=== PATIENT | female | born 1975 | race Caucasian/White ===

== ENCOUNTER 2020-06-09 15:19 | Emergency (ER) | payer BC, SELFPAY ==
--- NOTE | ~2020-06-09 | XR_ITS ---
EXAMINATION: XR finger 2nd LT min 2V DATE: 06/09/2020 16:27 INDICATION: Post injury to the left second digit TECHNIQUE: Dorsal palmar, lateral and 2 oblique views of the left second digit were obtained COMPARISON: None FINDINGS: Is approximately 2 mm distal distraction of a transverse fracture across the distal tuft of the left second distal phalanx. Abnormal contour to the soft tissues at the dorsal aspect of the distal phalan x suggesting loss of the nail or nail bed injury which could render this a: Interval open/compound fr acture. No other fractures identified. Joint spaces are normal. IMPRESSION: 1. 2 mm distraction of a transverse fracture across the tip of the tuft of the left second distal pha lanx with suggestion of associated nailbed injury with synovitis: Open/compound fracture at increased risk of infection. Reviewed, dictated and finalized at location A. IMPRESSION: 1. 2 mm distraction of a transverse fracture across the tip of the tuft of the left second distal phalanx with suggestion of associated nailbed injury with sy novitis: Open/compound fracture at increased risk of infection.
[2020-06-09 15:29] VITALS: BP 170/85; PULSE 98; RESP 18; TEMP 37.3; O2SAT 98
--- NOTE | 2020-06-09 15:40 | WC.ED.TRAUMA ---
HPI - Trauma General Chief Complaint: Extremity Injury, Upper Stated Complaint: finger injury Time Seen by Provider: 06/09/20 15:31 Source: patient Mode of arrival: ambulatory Limitations: no limitations History of Present Illness HPI narrative: Patient is a 44-year-old female who presents after crush injury to the left index finger that occurred last night lacerating the distal third of the nailbed patient did not receive or seek care until today patient is unsure as to tetanus status patient notes moderate aching pain worse with activity and movement Related Data Home Medications Medication Instructions Recorded Confirmed hydrochlorothiazide 06/09/20 metoprolol succinate PO 06/09/20 06/09/20 Allergies Allergy/AdvReac Type Severity Reaction Status Date / Time No Known Allergies Allergy Verified 06/09/20 15:33 Review of Systems Review of Systems: All systems reviewed & are unremarkable except as noted in HPI and below PMFSH Past Medical History Medical History (Updated 06/09/20 @ 16:51 by Washington Cazares PA-C) Obesity Social History Social History Gender identity (if verbalized by the patient): Female Exam Narrative: Exam Narrative: GENERAL: Well-appearing, well-nourished, and in no acute distress. HEAD: Normocephalic, atraumatic. EYES: PERRLA and EOMI. ENT: Nares clear, no rhinorrhea or epistaxis. Mucous membranes moist. EXTREMITIES: Normal range of motion. No edema. SKIN: Warm, dry, no rash. Laceration of the distal third of the nailbed NEURO: No focal deficits. Alert and oriented x3. Neurovascularly intact PSYCH: Normal mood and affect. Course Course Emergency Course: Patient's laceration was repaired in the emergency department felt appropriate for outpatient reevaluation tetanus updated and given antibiotic given the open fracture Vital Signs Vital signs: Vital Signs Temperature 99.2 F 06/09/20 15:29 Pulse Rate 98 06/09/20 15:29 Respiratory Rate 18 06/09/20 15:29 Blood Pressure 170/85 H 06/09/20 15:29 Pulse Oximetry 98 06/09/20 15:29 Temperature 99.2 F 06/09/20 15:29 Pulse Rate 98 06/09/20 15:29 Respiratory Rate 18 06/09/20 15:29 Blood Pressure 170/85 H 06/09/20 15:29 Pulse Oximetry 98 06/09/20 15:29 Procedures Laceration Laceration 1: Date: 06/09/20 Time: 16:48 Site: upper extremity (Left index finger) Side (If applicable): left Size (cm): 1 Description: linear Depth: simple, single layer Local Anesthetic: lidocaine 1% Pre-repair: wound explored, irrigated and irrigated extensively ====== Skin Level ====== Skin layer closed with: nylon Size (cm): 4-0 Number of sutures: 4 Technique: simple, interrupted ====== Subcutaneous Layer ====== ====== Muscle Layer ====== ====== Tendon Layer ====== Dressing: Patient's wound was prepped with Technicare scrub after digital block with 1% lidocaine distal portion of the nail was removed nailbed was repaired using 4-0 nylon sutures to approximate the wound antibiotic ointment 4 x 4 and Coban placed post procedure. Neurovascularly intact pre-and post procedure MDM - Trauma MDM Narrative Medical decision making narrative: Patients injury or pain is consistent with musculoskeletal etiology. No signs of neurological or vascular compromise on exam. Compartments and tisues are soft without signs of compartment syndrome. Patient will be referred to plastic surgery placed on antibiotics Discharge Plan Discharge Clinical Impression: Open fracture of finger, Nailbed laceration, finger Patient Disposition: Home, Self-Care Condition: Stable Instructions: Antibiotic Form, Laceration (DC), Finger Fracture (ED) Additional Instructions: Follow-up with hand surgeon first thing Thursday to set up for reevaluation and discussion of removal of
[2020-06-09] MEDS: TETANUS,DIPHTHERIA,AC PERTUSSIS ADULT (0.5 ML) BOOSTRIX IM (15:43)
[2020-06-09] MEDS: ceFAZolin SODIUM 1 GM VIAL IM (17:01)
== END 2020-06-09 17:15 | disposition home or self-care (01) ==
PROVIDERS: Emergency Provider Emergency Medicine; PCP Physician Assistant
DX: S62.631B Displaced fracture of distal phalanx of left index finger, initial encounter for open fracture (principal); E66.9 Obesity, unspecified; Z68.39 Body mass index [BMI] 39.0-39.9, adult; Z23 Encounter for immunization; W23.0XXA Caught, crushed, jammed, or pinched between moving objects, initial encounter
CPT/HCPCS: 12001; 73140; 90471; 90715; 99283; J0690

== ENCOUNTER 2025-04-28 10:21 | Outpatient (CLI) | payer BC, SELFPAY ==
--- NOTE | ~2025-04-28 | US_ITS ---
EXAMINATION: US retroperitoneal duplex ltd DATE: 04/28/2025 13:27 CDT INDICATION: Uncontrolled hypertension TECHNIQUE: Sonographic imaging of the kidneys was performed with a 3.5 MHz transducer. Retroperitoneal duplex sonogram of the renal arteries also obtained. FINDINGS: No focal flow abnormalities are seen in the renal arteries on color Doppler. The peak systolic velocity ranges of the right and left renal arteries and aorta are 99 cm per second, 180 cm per second, and 68 cm per second, respectively. The velocities and renal to aortic ratios are are elevated on the left, consistent with renal artery stenosis. Left renal artery ratio is elevated measuring 2.7. IMPRESSION: 1. Abnormal velocities in the left renal artery, compatible with renal artery stenosis. Reviewed, dictated and finalized at location O.
== END 2025-04-28 10:22 | disposition home or self-care (01) ==
LOC: MICIMG 10:22
PROVIDERS: PCP Physician Assistant; Visit Provider Physician Assistant
DX: I10 Essential (primary) hypertension (principal)
CPT/HCPCS: 93976

== ENCOUNTER 2025-06-29 08:56 | Outpatient (CLI) | payer BC, SELFPAY ==
--- NOTE | ~2025-06-29 | MR_ITS ---
EXAMINATION: MRA abdomen wo/w con DATE: 06/29/2025 10:55 INDICATION: Left renal artery stenosis TECHNIQUE: Magnetic resonance angiography (MRA) of the abdomen was performed without and with 20 mL Multihance intravenous contrast. Sequences included axial and coronal 2-D FIESTA, 3-D phase contrast at the level renal arteries and pre contrast and two sequential coronal postcontrast FSPGR from which rotating maximum intensity projection reconstructions were performed. COMPARISON: Ultrasound dated 04/28/2025 FINDINGS: Abdominal aorta, celiac axis, superior and inferior mesenteric arteries, bilateral renal arteries and bilateral common and visualized portions of the bilateral internal and external iliac arteries are all normal in caliber, widely patent with no stenosis or dissection. Incidentally noted is a tiny accessory left renal artery supplying portions of the lower pole. The bilateral kidneys and adrenal glands and visualized portions of the liver and pancreas are normal. Mild splenomegaly measuring 14.6 cm in maximal length. Gallbladder is nonvisualized and likely surgically absent. Visualized portions of the bowels are unremarkable. No pathologically enlarged abdominal lymphadenopathy. . IMPRESSION: 1. Tiny patent accessory left renal artery supplying the lower pole. Otherwise normal MR angiogram of the abdominal aorta and its branch arteries with no renal artery stenosis. Reviewed, dictated and finalized at location A. IMPRESSION: 1. Tiny patent accessory left renal artery supplying the lower pole. Otherwise normal MR angiogram of the abdominal aorta and its branch arteries with no gomez l artery stenosis.
--- OUTSIDE RECORDS SUMMARY | 2025-06-29 09:13 | XMS_ITS | Data Portability ---
Author Organization [facility]THEW JIMSlade Mejia Address [address] [place] [address] Care Team Providers Care Restoration Ecologist Name Role Phone YAW PAYAN Primary Care Provider Unavailabl e Assessment No assessment recorded. Plan of Treatment Reminders Order Date Submit Date Provider Last Modified By Organization Details Last Modified Time Details Appointments ANY 15 2024 11:30A M ROBBIN Logan Not available Not available Not available Lab microalbu min, urine 2024 025 [facility], [address], [place], [address], 06/18/2025 09:07:32 HbA1c (hemoglob in A1c), blood 2024 025 [facility], [address], [place], [address], 06/18/2025 09:07:33 CMP, serum or plasma 2024 025 [facility], [address], [place], [address], 06/18/2025 09:07:33 CBC w/ auto diff 2024 025 [facility], [address], [place], [address], 06/18/2025 09:07:34 lipid panel, serum 2024 025 [facility], [address], [place], [address], 10/26/2024 11:07:56 CMP, serum or plasma 2024 025 [facility], [address], [place], [address], 10/26/2024 11:07:58 CBC w/ auto diff 2024 025 [facility], [address], [place], [address], 10/26/2024 11:08:02 insulin, serum 2024 025 [facility], [address], [place], [address], 10/26/2024 11:08:01 TSH + free T4, serum 2024 025 [facility], [address], [place], [address], 10/26/2024 11:07:57 HbA1c (hemoglob in A1c), blood 2024 025 [facility], [address], [place], [address], 10/26/2024 11:08:00 Referral None recorded. Procedures colonosco py screening (PROC) 2024 025 Laxmi Moya MD, [address], [address], [place], [address], 06/16/2025 14:49:10 Surgeries None recorded. Imaging US, duplex, renal artery 2024 025 [facility] (Imaging), [address], [place], [address], 05/31/2025 11:23:05 MAMMO, screening , digital, bilateral 2024 025 [facility] (Imaging), [address], [place], [address], 06/05/2025 15:24:41 Medication Orders Ozempic 0.25 mg or 0.5 mg (2 mg/3 mL) subcutane ous pen injector [address] [id number], [address], [place], [id number], 03/03/2025 13:26:54 OneTouch Verio test strips 2024 025 [facility] #[id number], [address], [place], [place], [id number], 11/02/2024 16:31:03 metoprolo l succinate ER 50 mg tablet,ex tended release 24 hr 2024 025 [facility] #[id number], [address], [place], [place], [id number], 03/21/2025 16:18:59 valsartan 160 mg tablet 2024 025 [facility] #[id number], [address], [place], [id number], 02/20/2025 16:20:33 Patient TargetsNo targets recorded. Patient Instructions Encounter Date Encounter Id Patient Instructions Last Modified By Organization Details Last Modified Time 09/27/2024 [id number] A healthy lifestyle: care instructions Not available 09/27/2024 16:12:16 11/02/2024 [id number] A healthy lifestyle: care instructions Not available 11/02/2024 16:11:54 02/01/2025 [id number] A healthy lifestyle: care instructions Not available 02/01/2025 16:42:52 03/08/2025 [id number] A healthy lifestyle: care instructions Not available 03/08/2025 16:50:57 Reason for Referral None Reported. Results Created Date Observation Date Name Description Value Unit Range Abnormal Flag Note LastModifiedBy Organization Detail LastModifiedTime 10/25/1910/26/2024 LIPID PANEL W/ CHOL/ HDL RATIO cholesterol, total 157 mg/dL 100-19 9 Not Available [facility] [address] [place], [address], 10/26/2024 11:07:56 10/25/19 25 10/26/2024 LIPID PANEL W/ CHOL/ HDL RATIO triglyceride s 180 mg/dL 0-149 above high normal Not Available [facility] [address] [place], [address], 10/26/2024 11:07:56 10/25/19 25 10/26/2024 LIPID PANEL W/ CHOL/ HDL RATIO HDL cholesterol 37 mg/dL >39 below low normal Not Available [facility] [address] [place], [address], 10/26/2024 11:07:56 10/25/19 25 10/26/2024 LIPID PANEL W/ CHOL/ HDL RATIO VLDL cholesterol dominick 31 mg/dL 5-40 Not Available [facility] [address] [place], [address], 10/26/2024 11:07:56 10/25/19 25 10/26/2024 LIPID PANEL W/ CHOL/ HDL RATIO LDL chol calc ([facility]) 89 mg/dL 0-99 Not Available [facility] [address] [place], [address], 10/26/2024 11:07:56 10/25/19 25 10/26/2024 LIPID PANEL W/ CHOL/ HDL RATIO T. chol/HDL ratio 4.2 ratio 0.0-4. 4 T. Chol/ HDL Ratio Men Women 1/2 Avg.R isk 3.4 3.3 Avg.R isk 5.0 4.4 2X Avg.R isk 9.6 7.1 3X Avg.R isk 23.4 11.0 Not Available [facility] [address] [place], [address], 10/26/2024 11:07:56 10/25/19 25 10/26/2024 TSH+F REE T4 TSH 0.875 uIU/m L 0.450- 4.500 Not Available [facility] [address] [place], [address], 10/26/2024 11:07:57 10/25/19 25 10/26/2024 TSH+F REE T4 T4,free(dire ct) 1.16 NG/dL 0.82-1 .77 Not Available [facility] [address] [place], [address], 10/26/2024 11:07:57 10/25/19 25 10/26/2024 COMP. METAB OLIC PANEL (14) glucose 153 mg/dL 70-99 above high normal Not Available [facility] [address] [place], [address], 10/26/2024 11:07:58 10/25/19 25 10/26/2024 COMP. METAB OLIC PANEL (14) BUN 13 mg/dL 6-24 Not Available [facility] [address] [place], [address], 10/26/2024 11:07:58 10/25/19 25 10/26/2024 COMP. METAB OLIC PANEL (14) creatinine 0.71 mg/dL 0.57-1 .00 Not Available [facility] [address] [place], [address], 10/26/2024 11:07:58 10/25/19 25 10/26/2024 COMP. METAB OLIC PANEL (14) eGFR 104 mL/mi n/1.7 3 >59 Not Available [facility] [address] [place], [address], 10/26/2024 11:07:58 10/25/19 25 10/26/2024 COMP. METAB OLIC PANEL (14) BUN/creatini ne ratio 18 9-23 Not Available [facility] [address] [place], [address], 10/26/2024 11:07:58 10/25/19 25 10/26/2024 COMP. METAB OLIC PANEL (14) sodium 144 mmol/ L 134-14 4 Not Available [facility] [address] [facility], [place], [address], 10/26/2024 11:07:58 10/25/19 25 10/26/2024 COMP. METAB OLIC PANEL (14) potassium 3.5 mmol/ L 3.5-5. 2 Not Available [facility] [address] [place], [address], 10/26/2024 11:07:58 10/25/19 25 10/26/2024 COMP. METAB OLIC PANEL (14) chloride 104 mmol/ L 96-106 Not Available [facility] [address] [place], [address], 10/26/2024 11:07:58 10/25/19 25 10/26/2024 COMP. METAB OLIC PANEL (14) carbon dioxide, total 21 mmol/ L 20-29 Not Available [facility] [address] [place], [address], 10/26/2024 11:07:58 10/25/19 25 10/26/2024 COMP. METAB OLIC PANEL (14) calcium 9.8 mg/dL 8.7-10 .2 Not Available [facility] [address] [place], [address], 10/26/2024 11:07:58 10/25/19 25 10/26/2024 COMP. METAB OLIC PANEL (14) protein, total 7.1 g/dL 6.0-8. 5 Not Available [facility] [address] [place], [address], 10/26/2024 11:07:58 10/25/19 25 10/26/2024 COMP. METAB OLIC PANEL (14) albumin 4.7 g/dL 3.9-4. 9 Not Available [facility] [address] [place], [address], 10/26/2024 11:07:58 10/25/19 25 10/26/2024 COMP. METAB OLIC PANEL (14) globulin, total 2.4 g/dL 1.5-4. 5 Not Available [facility] [address] [place], [address], 10/26/2024 11:07:58 10/25/19 25 10/26/2024 COMP. METAB OLIC PANEL (14) bilirubin, total 1.4 mg/dL 0.0-1. 2 above high normal Not Available [facility] [address] [place], [address], 10/26/2024 11:07:58 10/25/19 25 10/26/2024 COMP. METAB OLIC PANEL (14) alkaline phosphatase 84 IU/L 44-121 Not Available [facility] [address] [place], [address], 10/26/2024 11:07:58 10/25/19 25 10/26/2024 COMP. METAB OLIC PANEL (14) AST (SGOT) 25 IU/L 0-40 Not Available [facility] [address] [facility], [place], [address], 10/26/2024 11:07:58 10/25/19 25 10/26/2024 COMP. METAB OLIC PANEL (14) ALT (SGPT) 34 IU/L 0-32 above high normal Not Available [facility] [address] [place], [address], 10/26/2024 11:07:58 10/25/19 25 10/26/2024 HEMOG LOBIN A1C hemoglobin A1C 6.7 % 4.8-5. 6 above high normal Predi abete s: 5.7 - 6.4 Diabe iglesia: >6.4 Glyce you contr ol for adult s with diabe iglesia: <7.0 Not Available [facility] [address] [place], [address], 10/26/2024 11:07:59 10/25/19 25 10/26/2024 INSUL IN insulin 31.1 uIU/m L 2.6-24 .9 above high normal Not Available [facility] [address] [place], [address], 10/26/2024 11:08:01 10/25/19 25 10/26/2024 CBC WITH DIFFE RENTI AL/PL ATELE T WBC 7.5 x10e3 /uL 3.4-10 .8 Not Available [facility] [address] [place], [address], 10/26/2024 11:08:02 10/25/19 25 10/26/2024 CBC WITH DIFFE RENTI AL/PL ATELE T RBC 4.61 x10e6 /uL 3.77-5 .28 Not Available [facility] [address] [place], [address], 10/26/2024 11:08:02 10/25/19 25 10/26/2024 CBC WITH DIFFE RENTI AL/PL ATELE T hemoglobin 14.2 g/dL 11.1-1 5.9 Not Available [facility] [address] [place], [address], 10/26/2024 11:08:02 10/25/19 25 10/26/2024 CBC WITH DIFFE RENTI AL/PL ATELE T hematocrit 42.2 % 34.0-4 6.6 Not Available [facility] [address] [facility], [place], [address], 10/26/2024 11:08:02 10/25/19 25 10/26/2024 CBC WITH DIFFE RENTI AL/PL ATELE T MCV 92 fL 79-97 Not Available [facility] [address] [place], [address], 10/26/2024 11:08:02 10/25/19 25 10/26/2024 CBC WITH DIFFE RENTI AL/PL ATELE T MCH 30.8 pg 26.6-3 3.0 Not Available [facility] [address] [place], [address], 10/26/2024 11:08:02 10/25/19 25 10/26/2024 CBC WITH DIFFE RENTI AL/PL ATELE T MCHC 33.6 g/dL 31.5-3 5.7 Not Available [facility] [address] [place], [address], 10/26/2024 11:08:02 10/25/19 25 10/26/2024 CBC WITH DIFFE RENTI AL/PL ATELE T RDW 14.4 % 11.7-1 5.4 Not Available [facility] [address] [place], [address], 10/26/2024 11:08:02 10/25/19 25 10/26/2024 CBC WITH DIFFE RENTI AL/PL ATELE T platelets 221 x10e3 /uL 150-45 0 Not Available [facility] [address] [facility], [place], [address], 10/26/2024 11:08:02 10/25/19 25 10/26/2024 CBC WITH DIFFE RENTI AL/PL ATELE T neutrophils 78 % notest ab. Not Available [facility] [address] [facility], [place], [address], 10/26/2024 11:08:02 10/25/19 25 10/26/2024 CBC WITH DIFFE RENTI AL/PL ATELE T lymphs 16 % notest ab. Not Available [facility] [address] [facility], [place], [address], 10/26/2024 11:08:02 10/25/19 25 10/26/2024 CBC WITH DIFFE RENTI AL/PL ATELE T monocytes 5 % notest ab. Not Available [facility] [address] [facility], [place], [address], 10/26/2024 11:08:02 10/25/19 25 10/26/2024 CBC WITH DIFFE RENTI AL/PL ATELE T eos 0 % notest ab. Not Available [facility] [address] [facility], [place], [address], 10/26/2024 11:08:02 10/25/19 25 10/26/2024 CBC WITH DIFFE RENTI AL/PL ATELE T basos 1 % notest ab. Not Available [facility] [address] [place], [address], 10/26/2024 11:08:02 10/25/19 25 10/26/2024 CBC WITH DIFFE RENTI AL/PL ATELE T neutrophils (absolute) 5.8 x10e3 /uL 1.4-7. 0 Not Available [facility] [address] [facility], [place], [address], 10/26/2024 11:08:02 10/25/19 25 10/26/2024 CBC WITH DIFFE RENTI AL/PL ATELE T lymphs (absolute) 1.2 x10e3 /uL 0.7-3. 1 Not Available [facility] [address] [facility], [place], [address], 10/26/2024 11:08:02 10/25/19 25 10/26/2024 CBC WITH DIFFE RENTI AL/PL ATELE T monocytes(ab solute) 0.3 x10e3 /uL 0.1-0. 9 Not Available [facility] [address] [facility], [place], [address], 10/26/2024 11:08:02 10/25/19 25 10/26/2024 CBC WITH DIFFE RENTI AL/PL ATELE T eos (absolute) 0.0 x10e3 /uL 0.0-0. 4 Not Available [facility] [address] [facility], [place], [address], 10/26/2024 11:08:02 10/25/19 25 10/26/2024 CBC WITH DIFFE RENTI AL/PL ATELE T baso (absolute) 0.1 x10e3 /uL 0.0-0. 2 Not Available [facility] [address] [place], [address], 10/26/2024 11:08:02 10/25/19 25 10/26/2024 CBC WITH DIFFE RENTI AL/PL ATELE T immature granulocytes 0 % notest ab. Not Available [facility] [address] [facility], [place], [address], 10/26/2024 11:08:02 10/25/19 25 10/26/2024 CBC WITH DIFFE RENTI AL/PL ATELE T immature grans (abs) 0.0 x10e3 /uL 0.0-0. 1 Not Available [facility] [address] [facility], [place], [address], 10/26/2024 11:08:02 06/17/20 25 06/18/2025 ALBUM IN, RANDO M URINE albumin, urine 12.9 ug/mL notest ab. Not Available [facility] [address] [place], [address], 06/18/2025 09:07:32 06/17/20 25 06/18/2025 COMP. METAB OLIC PANEL (14) glucose 121 mg/dL 70-99 above high normal Not Available [facility] [address] [facility], [place], [address], 06/18/2025 09:07:33 06/17/20 25 06/18/2025 COMP. METAB OLIC PANEL (14) BUN 16 mg/dL 6-24 Not Available [facility] [address] [place], [address], 06/18/2025 09:07:33 06/17/20 25 06/18/2025 COMP. METAB OLIC PANEL (14) creatinine 0.80 mg/dL 0.57-1 .00 Not Available [facility] [address] [facility], [place], [address], 06/18/2025 09:07:33 06/17/20 25 06/18/2025 COMP. METAB OLIC PANEL (14) eGFR 90 mL/mi n/1.7 3 >59 Not Available [facility] [address] [place], [address], 06/18/2025 09:07:33 06/17/20 25 06/18/2025 COMP. METAB OLIC PANEL (14) BUN/creatini ne ratio 20 9-23 Not Available [facility] [address] [place], [address], 06/18/2025 09:07:33 06/17/20 25 06/18/2025 COMP. METAB OLIC PANEL (14) sodium 141 mmol/ L 134-14 4 Not Available [facility] [address] [place], [address], 06/18/2025 09:07:33 06/17/20 25 06/18/2025 COMP. METAB OLIC PANEL (14) potassium 4.6 mmol/ L 3.5-5. 2 Not Available [facility] [address] [place], [address], 06/18/2025 09:07:33 06/17/20 25 06/18/2025 COMP. METAB OLIC PANEL (14) chloride 104 mmol/ L 96-106 Not Available [facility] [address] [place], [address], 06/18/2025 09:07:33 06/17/2006/18/2025 COMP. METAB OLIC PANEL (14) carbon dioxide, total 22 mmol/ L 20-29 Not Available [facility] [address] [place], [address], 06/18/2025 09:07:33 06/17/20 25 06/18/2025 COMP. METAB OLIC PANEL (14) calcium 10.4 mg/dL 8.7-10 .2 above high normal Not Available [facility] [address] [place], [address], 06/18/2025 09:07:33 06/17/20 25 06/18/2025 COMP. METAB OLIC PANEL (14) protein, total 7.0 g/dL 6.0-8. 5 Not Available [facility] [address] [place], [address], 06/18/2025 09:07:33 06/17/20 25 06/18/2025 COMP. METAB OLIC PANEL (14) albumin 4.8 g/dL 3.9-4. 9 Not Available [facility] [address] [facility], [place], [address], 06/18/2025 09:07:33 06/17/20 25 06/18/2025 COMP. METAB OLIC PANEL (14) globulin, total 2.2 g/dL 1.5-4. 5 Not Available [facility] [address] [facility], [place], [address], 06/18/2025 09:07:33 06/17/2006/18/2025 COMP. METAB OLIC PANEL (14) bilirubin, total 1.0 mg/dL 0.0-1. 2 Not Available [facility] [address] [facility], [place], [address], 06/18/2025 09:07:33 06/17/20 25 06/18/2025 COMP. METAB OLIC PANEL (14) alkaline phosphatase 86 IU/L 41-116 Not Available [facility] [address] [facility], [place], [address], 06/18/2025 09:07:33 06/17/2006/18/2025 COMP. METAB OLIC PANEL (14) AST (SGOT) 19 IU/L 0-40 Not Available [facility] [address] [facility], [place], [address], 06/18/2025 09:07:33 06/17/2006/18/2025 COMP. METAB OLIC PANEL (14) ALT (SGPT) 34 IU/L 0-32 above high normal Not Available [facility] [address] [facility], [place], [address], 06/18/2025 09:07:33 06/17/2001 0706/18/2025 HEMOG LOBIN A1C hemoglobin A1C 5.7 % 4.8-5. 6 above high normal Predi abete s: 5.7 - 6.4 Diabe iglesia: >6.4 Glyce you contr ol for adult s with diabe iglesia: <7.0 Not Available [facility] [address] [facility], [place], [address], 06/18/2025 09:07:33 06/17/2006/18/2025 CBC WITH DIFFE RENTI AL/PL ATELE T WBC 7.8 x10e3 /uL 3.4-10 .8 Not Available [facility] [address] [place], [address], 06/18/2025 09:07:34 06/17/2006/18/2025 CBC WITH DIFFE RENTI AL/PL ATELE T RBC 4.75 x10e6 /uL 3.77-5 .28 Not Available [facility] [address] [facility], [place], [address], 06/18/2025 09:07:34 06/17/2006/18/2025 CBC WITH DIFFE RENTI AL/PL ATELE T hemoglobin 14.9 g/dL 11.1-1 5.9 Not Available [facility] [address] [place], [address], 06/18/2025 09:07:34 06/17/2006/18/2025 CBC WITH DIFFE RENTI AL/PL ATELE T hematocrit 45.7 % 34.0-4 6.6 Not Available [facility] [address] [place], [address], 06/18/2025 09:07:34 06/17/20 25 06/18/2025 CBC WITH DIFFE RENTI AL/PL ATELE T MCV 96 fL 79-97 Not Available [facility] [address] [place], [address], 06/18/2025 09:07:34 06/17/2006/18/2025 CBC WITH DIFFE RENTI AL/PL ATELE T MCH 31.4 pg 26.6-3 3.0 Not Available [facility] [address] [facility], [place], [address], 06/18/2025 09:07:34 06/17/2006/18/2025 CBC WITH DIFFE RENTI AL/PL ATELE T MCHC 32.6 g/dL 31.5-3 5.7 Not Available [facility] [address] [facility], [place], [address], 06/18/2025 09:07:34 06/17/2006/18/2025 CBC WITH DIFFE RENTI AL/PL ATELE T RDW 14.8 % 11.7-1 5.4 Not Available [facility] [address] [facility], [place], [address], 06/18/2025 09:07:34 06/17/2006/18/2025 CBC WITH DIFFE RENTI AL/PL ATELE T platelets 266 x10e3 /uL 150-45 0 Not Available [facility] [address] [facility], [place], [address], 06/18/2025 09:07:34 06/17/2006/18/2025 CBC WITH DIFFE RENTI AL/PL ATELE T neutrophils 71 % notest ab. Not Available [facility] [address] [facility], [place], [address], 06/18/2025 09:07:34 06/17/2006/18/2025 CBC WITH DIFFE RENTI AL/PL ATELE T lymphs 21 % notest ab. Not Available [facility] [address] [facility], [place], [address], 06/18/2025 09:07:34 06/17/20 25 06/18/2025 CBC WITH DIFFE RENTI AL/PL ATELE T monocytes 7 % notest ab. Not Available [facility] [address] [facility], [place], [address], 06/18/2025 09:07:34 06/17/2006/18/2025 CBC WITH DIFFE RENTI AL/PL ATELE T eos 0 % notest ab. Not Available [facility] [address] [facility], [place], [address], 06/18/2025 09:07:34 06/17/2006/18/2025 CBC WITH DIFFE RENTI AL/PL ATELE T basos 1 % notest ab. Not Available [facility] [address] [facility], [place], [address], 06/18/2025 09:07:34 06/17/2006/18/2025 CBC WITH DIFFE RENTI AL/PL ATELE T neutrophils (absolute) 5.5 x10e3 /uL 1.4-7. 0 Not Available [facility] [address] [facility], [place], [address], 06/18/2025 09:07:34 06/17/2006/18/2025 CBC WITH DIFFE RENTI AL/PL ATELE T lymphs (absolute) 1.6 x10e3 /uL 0.7-3. 1 Not Available [facility] [address] [facility], [place], [address], 06/18/2025 09:07:34 06/17/2006/18/2025 CBC WITH DIFFE RENTI AL/PL ATELE T monocytes(ab solute) 0.5 x10e3 /uL 0.1-0. 9 Not Available [facility] [address] [place], [address], 06/18/2025 09:07:34 06/17/20 25 06/18/2025 CBC WITH DIFFE RENTI AL/PL ATELE T eos (absolute) 0.0 x10e3 /uL 0.0-0. 4 Not Available [facility] [address] [facility], [place], [address], 06/18/2025 09:07:34 06/17/20 25 06/18/2025 CBC WITH DIFFE RENTI AL/PL ATELE T baso (absolute) 0.1 x10e3 /uL 0.0-0. 2 Not Available [facility] [address] [facility], [place], [address], 06/18/2025 09:07:34 06/17/20 25 06/18/2025 CBC WITH DIFFE RENTI AL/PL ATELE T immature granulocytes 0 % notest ab. Not Available [facility] [address] [facility], [place], [address], 06/18/2025 09:07:34 06/17/2006/18/2025 CBC WITH DIFFE RENTI AL/PL ATELE T immature grans (abs) 0.0 x10e3 /uL 0.0-0. 1 Not Available [facility] [address] [facility], [place], [address], 06/18/2025 09:07:34 05/31/20 25 04/28/2025 US, duple x, renal arter y No observ ation record ed. [facility] [address] [facility], [place], [address], 06/23/2025 09:03:35 Result Notes None recorded. Problems Name Problem SNOMED Code Status Onset Date Resolution Date Notes Provider Name and Address Organization Details Recorded Time Body mass index 40+ - severely obese 530311455 Active 2024 Miryam Saldana MA null, [place] - [facility] 5 15:49:05 Benign essential hypertensio n 5083592 Active 2024 ROBBIN Logan Attn: Accountin g,[address] [facility], [place], [address], [place] - [facility] 5 16:08:50 Long-term drug therapy Active 2024 ROBBIN Logan Attn: Accountin g,[address] [facility], [place], [address], [place] [facility] 5 17:55:36 Positive screening for depression on PHQ-9 (Patient Health Questionnai re 9) [id number] 00 Active 2024 ROBBIN Logan Attn: Accountin g,[address] [facility], [place], [address], [place] [facility] 5 17:56:14 Type 2 diabetes mellitus without complicatio n 445976581 Active 2024 ROBBIN Logan Attn: Accountin g,[address] [facility], [place], [address], [place] [facility] 5 16:11:27 Hypertrigly ceridemia 850426473 Active 2024 ROBBIN Logan Attn: Accountin g,[address] [facility], [place], [address], [place] [facility] 5 16:11:28 Obesity 952756395 Active 2024 ROBBIN Logan Attn: Accountin g,[address] [facility], [place], [address], [place] [facility] 5 16:11:51 Obese class III [id number] Active 2024 ROBBIN Logan Attn: Accountin g,[address] [facility], [place], [address], [place] [facility] 5 23:22:26 Type 2 diabetes mellitus 43741005 Active 2024 ROBBIN Logan Attn: Philip jacob,[address] [facility], [place], [address], [facility] - [facility] 5 23:22:27 Hyperlipide marian 52604345 Active 2024 ROBBIN Logan Attn: Philip jacob,[address] [facility], [place], [address], [facility] - [facility] 5 23:22:52 Well controlled type 2 diabetes mellitus 430253666 Active 2024 ROBBIN Logan Attn: Philip jacob,[address] [facility], [place], [address], [facility] - SI 5 14:14:53 Long-term current use of drug therapy 636304579 Active 2024 ROBBIN Logan Attn: Philip jacob,[address] [facility], [place], [address], [facility] - SI 5 14:14:58 Problem Notes None recorded. Procedures Surgical History Date Name Laterality Status Provider Name and Address Organization Details Recorded Time Tubal Ligation completed Miryam Saldana MA [facility] 09/27/2024 15:43:32 Imaging Results None recorded. Procedure Notes None recorded. Medical Equipment None Reported. Allergies No known drug allergies Medications Name Sig Start Date Stop Date Status Note LastModified by Organization Details LastModified Time metoprolo l succinate ER 50 mg tablet,ex tended release 24 hr TAKE 1 TABLET BY MOUTH EVERY DAY 03/21 completed Not Available Not Available Not Available metoprolo l succinate ER 100 mg tablet,ex tended release 24 hr TAKE 1 TABLET BY MOUTH EVERY DAY active Not Available Not Available No t Available valsartan 320 mg tablet TAKE 1 TABLET BY MOUTH EVERY DAY 2024 active Not Available Not Available Not Avai lable valsartan 160 mg tablet TAKE 1 TABLET BY MOUTH EVERY DAY 02/20 completed increase d @ 02/01/25 ov Not Available Not Available Not Available OneTouch Verio test strips USE TO CHECK BLOOD SUGAR TWICE DAILY active Not Available Not Available No t Available OneTouch Verio Flex Meter USE DIRECTED TO MONITOR GLUCOSE active Not Available Not Available No t Available OneTouch Delica Plus Lancet 33 gauge USE TO TEST BLOOD GLUCOSE TWICE DAILY active Not Available Not Available No t Available Ozempic 1 mg/dose (4 mg/3 mL) subcutane ous pen injector INJECT 1 MG UNDER THE SKIN ONCE A WEEK active Not Available Not Available No t Available Ozempic 0.25 mg or 0.5 mg (2 mg/3 mL) subcutane ous pen injector INJECT 0.5MG INTO SKIN EVERY WEEK 03/03 completed Not Available Not Available Not Available Vitals Date Recorded Respiratory rate Systolic And Diastolic Provider Name and Address Organization Details Last Updated DateTime 09/27/2024 18 /min 160/80 mm[Hg] ROBBIN Logan Attn: Accounting, [place], [address], [facility] 10/09/2024 17:53:13 Date Recorded Body weight Body mass index (BMI) Body height Oxygen saturation Oxygen saturation in Arterial blood by Pulse oximetry Heart rate Systolic And Diastolic Provider Name and Address Organization Details Last Updated DateTime 5 897264. 54 g 43.2 kg/m2 160.02 cm 97 % 97 % 81 /min 148/82 mm[Hg] Miryam Saldana MA [facility] 15:52:26 Date Recorded Respiratory rate Systolic And Diastolic Systolic And Diastolic Provider Name and Address Organization Details Last Updated DateTime 11/02/2024 16 /min 150/94 mm[Hg] 148/80 mm[Hg] ROBBIN Logan Attn: Accounting, [address] [place], [address], [facility] 11/02/2024 16:23:23 Date Recorded Body height Body mass index (BMI) Body weight Heart rate Oxygen saturation Oxygen saturation in Arterial blood by Pulse oximetry Systolic And Diastolic Provider Name and Address Organization Details Last Updated DateTime 5 160.02 cm 41.8 kg/m2 290388. 8 g 105 /min 98 % 98 % 160/90 mm[Hg] Steve Lujan MA [facility] 16:08:28 Date Recorded Systolic And Diastolic Provider Name and Address Organization Details Last Updated DateTime 02/01/2025 150/90 mm[Hg] ROBBIN Logan Attn: Accounting,[address] [place], [address], [facility] 02/01/2025 16:40:52 Date Recorded Body height Body mass index (BMI) Body weight Oxygen saturation Oxygen saturation in Arterial blood by Pulse oximetry Heart rate Respiratory rate Systolic And Diastolic Provider Name and Address Organization Details Last Updated DateTime 160.02 cm 40.6 kg/m2 513437. 65 g 99 % 99 % 71 /min 18 /min 142/90 mm[Hg] Miryam Saldana MA [facility] 16:14:16 Date Recorded Respiratory rate Systolic And Diastolic Provider Name and Address Organization Details Last Updated DateTime 03/08/2025 16 /min 150/80 mm[Hg] ROBBIN Logan Attn: Accounting, [place], [address], [facility] 04/02/2025 14:11:40 Date Recorded Body height Body mass index (BMI) Body weight Oxygen saturation Oxygen saturation in Arterial blood by Pulse oximetry Heart rate Systolic And Diastolic Provider Name and Address Organization Details Last Updated DateTime 160.02 cm 40.2 kg/m2 508988. 47 g 98 % 98 % 84 /min 146/84 mm[Hg] Miryam Saldana MA [facility] 16:17:47 Social History Question Answer Notes LastModified by Organizat ion Details LastModified Time Tobacco Smoking Status Never Smoker Miryam Saldana MA null, [facility] 09/27/2024 15:44:21 Do You Have An Advance Directive? No Information not available 09/27/2024 Are You Blind Or Do You Have Difficulty Seeing? Yes Glasses Information not available 11/02/2024 What Is Your Level Of Caffeine Consumption? Occasional Rare Information not available 09/27/2024 In The 14 Days Before Symptom Onset, Have You Had Close Contact With A Laboratory-confir [facility] COVID-19 While That Case Was Ill? No Information not available 09/27/2024 In The 14 Days Before Symptom Onset, Have You Had Close Contact With A Person Who Is Under Investigation For COVID-19 While That Person Was Ill? No Information not available 09/27/2024 Have You Been To An Area Known To Be High Risk For COVID-19? No Information not available 09/27/2024 Are You Deaf Or Do You Have Serious Difficulty Hearing? No Information not available 09/27/2024 What Type Of Diet Are You Following? REGULAR Information not available 09/27/2024 Are There Any Guns Present In Your Home? No Information not available 09/27/2024 What Was The Date Of Your Most Recent Tobacco Screening? 03/08/2025 Information not available 03/08/2025 What Is Your Relationship Status? Single Information not available 09/27/2024 Do You Use Your Seat Belt Or Car Seat Routinely? Yes Information not available 09/27/2024 Do You Have Smoke And Carbon Monoxide Detectors In Your Home? Yes Information not available 09/27/2024 Do You Use Sunscreen Routinely? Yes Information not available 09/27/2024 Has Tobacco Cessation Counseling Been Provided? No Information not available 09/27/2024 Sex: Female Functional Status Question Answer Note LastModified by Organizat ion Details LastModified Time Do you use any illicit or recreational drugs? No Information not available 09/27/2024 Do you or have you ever used any other forms of tobacco or nicotine? No Information not available 09/27/2024 What is your level of alcohol consumption? Occasional Information not available 09/27/2024 Are you currently employed? Yes Information not available 09/27/2024 Are you able to care for yourself independently? 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 Family History Relationship Description Onset Age of this Age Resolved Age Notes LastModified by Organization Details LastModified Time Father Harmful pattern of use of alcohol tcarterma Not available 2024 15:43:46 Father Family history of cancer of colon tcarterma Not available 2024 15:43:53 Father Diabetes mellitus tcarterma Not available 2024 15:43:59 Father Heart disease tcarterma Not available 2024 15:44:02 Father Malignant neoplasm of prostate tcarterma Not available 2024 15:44:09 Sister Harmful pattern of use of alcohol tcarterma Not available 2024 15:43:46 Medical History Condition Response Coronary Artery Disease N Other N Atrial Fibrillation N High Blood Pressure N Kidney or Bladder Problems N Thyroid Problems N GI Problems N Depression N COPD N Blood Clots N Have you had a mammogram in the last yea r? N Skin Problems N Anemia N Heart Attack ([place]) N Anxiety Disorder N Diabetes N Muscle, Joint, or Bone Problems N Seizures/Epilepsy N Have you had a colonoscopy in the last 1 0 years? N Acid Reflux (GERD) N Cancer N Stroke N Asthma N Allergies N Have you had a PSA blood test in the las t year? N High Cholesterol N Hepatitis N Liver Disease N Headaches N Heart Failure N Osteoporosis N Gynecological History Statement/Question Response Menses Monthly N Obstetrics History GPAL:G 2 P 2 0 0 2 Type Value Multiple Births 0 Full Term 2 Induced 0 Spontaneous 0 Premature 0 Living 2 Total 2 Immunizations Vaccine Type Date Status Note Provider Nam e and Address Organization Details Recorded Time Tdap 06/09/2020 completed Miryam Saldana MA [place], [place] - [facility] 09/27/2024 15:48:35 Past Encounters Encounter ID Performer Location Encounter Start Date Encounter Closed Date Diagnosis/Indication Diagnosis SNOMED-CT Code Diagnosis ICD10 Code Diagnosis IMO Codes Diagnosis Note [id number] Kota Murray MD [facility] - Sylvia Gibson [address] [place] [address] 09/27/2024 15:23:17 10/03/2024 15:12:05 Morbid obesity 750724698 E66.01 discussed healthy diet, exercise, controllin g carbohydra iglesia and added sugars in the diet Body mass index 40+ - severely obese 271270352 Z68.41 BMI is 43.2. Screening insulin and thyroid labs ordered Adult [facility] examination 951288230 Z00.01 Annual wellness exam completed all routine labs ordered fasting Cholesterol screening 27 2669991 Z13.220 Fasting lipid panel ordered Diabetes m ellitus screening 454001770 Z13.1 A1c screening ordered Long-term drug therapy 036777302 Z79.891 Routine CBC and CMP due Benign ess ential hypertension 2559678 I10 Continue metoprolol ER succinate 50 mg daily and add valsartan 160 mg daily to better control blood pressure which is elevated in the 140s to 160 range systolic. [facility] 2 go over labs and blood pressure Screening for malignant neoplasm of colon 747123023 Z12.11 Patient referred for screening colonoscop y Screening mammography 24 641810 Z12.31 Annual mammogram ordered Positive s creening for depression on PHQ-9 (Patient Health Questionnaire 9) 6828797185 15074 Z13.31 Patient scored a 6 on screening today. She is not concerned with any mental health questions or concerns [id number] Kota Murray MD [facility] [address] [place] [address] 11/02/2024 15:51:42 11/03/2024 10:32:54 Type 2 diabetes mellitus without complication 640271963 E11.9 6.7% A1c. New onset type 2 diabetes. Start Ozempic therapy titration course as directed. One-Touch very a monitor ordered. Follow-up in 90 days Benign ess ential hypertension 3007408 I10 Blood pressure is 148/80. This is on metoprolol succinate ER 50 mg daily and now valsartan 160 mg daily. She did just take her metoprolol 1 hour ago and she forgot it yesterday. We will encourage weight loss for further management of her blood pressure at this time. We are hopeful that Ozempic therapy will facilitate Shirley glucose control but weight loss. Hypertriglyceridemia 302 948826 E78.1 Slightly elevated triglyceri de at 180. Again weight loss efforts to manage cholestero l. Long-term drug therapy 621710381 Z79.891 Labs reviewed Body mass index 40+ - severely obese 560618354 Z68.41 BMI is 41.8 Obesity 786562960 E66.9 discussed healthy diet, exercise, controllin g carbohydra iglesia and added sugars in the diet [id number] Kota Murray MD [facility] [employer] [address] [place] [address] 02/01/2025 16:05:14 02/02/2025 12:34:26 Benign essential hypertension 6879755 I10 boost to valsartan 320mg daily. Blood pressure is 150/90, continue metoprolol ER 50 mg daily Body mass index 40+ - severely obese 852292302 Z68.41 BMI is 41.8 Obese class III 69024621 5 E66.813 8934678916 discussed healthy diet, exercise, controllin g carbohydra iglesia and added sugars in the diet Type 2 wenceslao betes mellitus 44728811 E11.9 Z79.4 27618984 boost to ozempic 1mg weekly . Follow up on labs in the fall Hyperlipidemia 39458029 E78.5 6089268 Continue healthy diet modificati ons for lipid management [id number] Kota Murray MD [facility] [employer] [address] [place] [address] 03/08/2025 16:03:19 03/14/2025 10:11:23 Obese class III 023015658 E66.813 3212841878 discussed healthy diet, exercise, controllin g carbohydra iglesia and added sugars in the diet Benign ess ential hypertension 6490041 I10 Blood pressure is still elevated today despite increasing valsartan to 320 mg at the last visit and being on metoprolol therapy. Today we are going to boost metoprolol to 100 mg ER daily and send her for an updated ultrasound duplex of the renal artery. Remotely many years back this testing was done. Well contr olled type 2 diabetes mellitus 835406033 E11.9 217394 Patient is doing well on Ozempic therapy currently at 1 mg weekly dosing. Updated labs and albumin urine testing is due Long-term current use of drug therapy 250261155 Z79.899 86590652 CBC and CMP due Hyperlipidemia 80425670 E78.5 2913876 Continue healthy diet modificati ons for lipid management Health Concerns Section Related Observation LastModified by Organization Detai ls LastModified Time None Recorded Concern Status LastModified by Organization Details LastModified Time None Recorded Advance Directives Directive N: Payers Insurance Date Sequence Insurance Name Policy Number Policy Hale Covered Member ID Hale Member ID Guarantor Name 06/07/2025 1 [place] [id number] Ioana Alfonso [id number] Ioana Alfonso Notes Date Note Type Note Provider Name and Address Organization Details Recorded Time 5 text/html HypertensionReported by PatientPatient has ongoing chronic history of hypertension which she has been taking metoprolol succinate ER 50 mg daily. She does not check her home readings so she was not familiar with what it has been running however it was elevated today on the initial blood pressure check. Patient is due for all of her routine labs, mammogram and colonoscopy. Patient is here for her annual wellness exam ROBBIN Logan Attn: Accounting,[address] [facility], [place], [address], [facility] 10/09/2024 17:56:32 5 text/html HyperlipidemiaReported by PatientHPIFor duration, patient reportschronic. For risk factors, patient reportsdiabetes,hypertensio n,obesity, andlow hdl level. For current therapy, patient reportslast cholesterol level: (157),last ldl level: (89),last triglyceride level: (180), andlast hdl level: (37). For compliance, patient reportscompliant. For complications, patient reportsno coronary artery disease,no peripheral artery disease, andno cardiovascular disease. HypertensionReported by PatientPatient has ongoing chronic history of hypertension which she has been taking metoprolol succinate ER 50 mg daily and recently valsartan 160 mg daily added at the last visit DiabetesReported by PatientHPIFor associated symptoms, patient reportsweight gain (___ lbs). For duration, patient reportsnew onset. For onset/timing, patient reportsdiagnosed on: (on recent labs). For compliance, patient reportscompliant with follow-up visits.Complications and Co-morbiditiesFor chronic complications, patient reportshypertension: __andhyperlipidemia: __. ROBBIN Logan Attn: Accounting,[address] [facility], [place], [address], [facility] 11/02/2024 23:14:47 5 text/html HyperlipidemiaReported by PatientHPIFor duration, patient reportschronic. For risk factors, patient reportsdiabetes,hypertensio n,obesity, andlow hdl level. For current therapy, patient reportslast cholesterol level: (157),last ldl level: (89),last triglyceride level: (180), andlast hdl level: (37). For compliance, patient reportscompliant. For complications, patient reportsno coronary artery disease,no peripheral artery disease, andno cardiovascular disease. HypertensionReported by PatientPatient has ongoing chronic history of hypertension which she has been taking metoprolol succinate ER 50 mg daily and recently valsartan 160 mg daily added at the last visit DiabetesReported by PatientHPIFor associated symptoms, patient reportsweight gain (___ lbs). For duration, patient reportsnew onset. For onset/timing, patient reportsdiagnosed on: (on recent labs). For compliance, patient reportscompliant with follow-up visits.Complications and Co-morbiditiesFor chronic complications, patient reportshypertension: __andhyperlipidemia: __.Patient is on Ozempic therapy for her diabetes management she is up to the 0.5 mg weekly dose. ROBBIN Logan Attn: Accounting,[address] [place], [address], [facility] 02/01/2025 23:23:14 5 text/html HyperlipidemiaReported by PatientHPIFor duration, patient reportschronic. For risk factors, patient reportsdiabetes,hypertensio n,obesity, andlow hdl level. For current therapy, patient reportslast cholesterol level: (157),last ldl level: (89),last triglyceride level: (180), andlast hdl level: (37). For compliance, patient reportscompliant. For complications, patient reportsno coronary artery disease,no peripheral artery disease, andno cardiovascular disease. HypertensionReported by PatientPatient has ongoing chronic history of hypertension which she has been taking metoprolol succinate ER 50 mg daily and recently valsartan 160 mg daily added at the last visit DiabetesReported by PatientHPIFor associated symptoms, patient reportsweight loss (___ lbs). For duration, patient reportsnew onset. For onset/timing, patient reportsdiagnosed on: (on recent labs). For compliance, patient reportscompliant with follow-up visits.Complications and Co-morbiditiesFor chronic complications, patient reportshypertension: __andhyperlipidemia: __.Patient is on Ozempic therapy for her diabetes management she is up to the 1 mg weekly dose. ROBBIN Logan Attn: Accounting,[address] [facility], [place], [address], [facility] 04/02/2025 14:16:34 OBGyn Episode No OBEpisode recorded.
--- OUTSIDE RECORDS SUMMARY | 2025-06-29 09:13 | XMS_ITS | Clinical Summary ---
Author Organization [facility] Address [address] [place] [address] Care Team Providers Care Assistant Mechanic Name Role Phone Ladi Guillaume MD Primary Care Provider [phone] [facility] [employer],non-owned Affiliates and Associated Physician Practices is amultiple site organization consisting of ambulatory clinics and hospital sitesin [place], [place], [place] and [place]. This disclosure is being madepursuant to the Care Everywhere program and may not contain all information available regarding this patient. Last updated 18.[facility] [employer] Allergies No known active allergies Medications * Be aware that medications may not be up to date on this document. Alwaysverify current medications with the patient. METOPROLOL SUCCINATE ER PO Acti ve Social History Tobacco Use Types Packs/Day Years Used Date Smoking Tobacco: Never Smokeless Tobacco: Never Alcohol Use Standard Drinks/Week Comments No 0 (1 standard drink = 0.6 oz pur e alcohol) Comments No Sex and Gender Information Value Date Recorded Sex Assigned at Not on file Legal Sex Female 6:39 PM [employer] Gender Identity Not on file Sexual Orientation Not on file Last Filed Vital Signs Vital Sign Reading Time Taken Comments Blood Pressure 128/80 08/16/2019 5:56 PM [employer] Pulse 86 08/16/2019 5:56 PM [employer] Temperature 36.5 C (97.7 F) 08/16/2019 5:56 PM [employer] Respiratory Rate 18 08/16/2019 5:56 PM [employer] Oxygen Saturation 98% 08/16/2019 5:56 PM [employer] Inhaled Oxygen Concentration - - Weight 104.3 kg (230 lb) 08/16/2019 5:56 PM [employer] Height 160 cm (5' 3) 08/16/2019 5:56 PM [employer] Body Mass Index 40.74 08/16/2019 5:56 PM [employer] Plan of Treatment Health Maintenance Due Date Last Done Comments COLOGUARD (AGES 45-75) - COL ON CA SCREENING 1975 COLON MONITORING 1975 COLONOSCOPY - COLON CA SCREENING 1975 CT COLONOGRAPHY - COLON CA SCREENING 1975 Colorectal Cancer Screening 1975 FIT - COLON CA SCREENING 1975 FLEX SIG - COLON CA SCREENING 1975 LIPID TESTING 1975 MAMMOGRAM 1975 HIV SCREENING 1990 HEPATITIS C SCREENING 09/13/1993 DTAP/TDAP/TD VACCINES (1 - Tdap) 1994 HEPATITIS B VACCINE (1 of 3 - 19+ 3-dose series) 1994 DEPRESSION SCREENING 09/07/2024 COVID-19 VACCINE (1 - 2023-2 5 season) 2025 INFLUENZA VACCINE (#1) 2025 ZOSTER VACCINE (1 of 2) 2025 HIB VACCINE Aged Out No longer eligi ble based on patient's age to complete this topic HPV VACCINE Aged Out No longer eligi ble based on patient's age to complete this topic MENINGOCOCCAL (Group B) VACC INE SHARED DECISION-MAKING Aged Out No longer eligibl e based on patient's age to complete this topic MENINGOCOCCAL GROUPS A/C/Y/W VACCINE Aged Out No longer eligible b ased on patient's age to complete this topic Insurance ANTH Care Teams Assistant Mechanic Relationship Specialty Start Date End Date Ladi Guillaume MD [address] [place] [address] PCP - General 08/26/13
== END 2025-06-29 08:57 | disposition home or self-care (01) ==
PROVIDERS: PCP Physician Assistant; Visit Provider Physician Assistant
DX: I70.1 Atherosclerosis of renal artery (principal)
CPT/HCPCS: 74185; A9577; C8902